=== PATIENT | male | born 1975 | race Caucasian/White ===

== ENCOUNTER 2019-09-03 03:04 | Inpatient (IN) | payer MEDICAID ==
[~2019-09-03] VITALS: Ht 182.9 cm; Wt 84.0 kg
[2019-09-03] MEDS ORDERED: MAGNESIUM SULFATE PMX 2GM/50ML 50 ML ONE (03:06)
[2019-09-03] MEDS ORDERED: PROAIR (03:07)
[2019-09-03] MEDS ORDERED: SYMBICORT (03:07)
[2019-09-03] MEDS ORDERED: ALBUTEROL 0.5%, 20ML ONE (03:09)
--- NOTE | 2019-09-03 03:10 | NUR ---
abx ordered. states no blood cultures needed prior to abx. primary rn informed.
[2019-09-03] MEDS: ALBUTEROL 0.5%, 20ML NPPB SCH ×2 (03:29→10:52)
--- NOTE | 2019-09-03 03:29 | NUR ---
Pt bib [facility] with c/o SOB s/t asthma. Pt is OOT and did not bring his inhaler. Received 3 albuterol and 1 duoneb with little relief. Upon arrival pt in tripod position. RT at bedside and pt placed on bipap. Antibiotics infusing--no blood cultures prior per ERP. Mag infusion started. ERP requesting mag infuse a 50ml/hr instead of 25ml/hr. Confirmed order and infusion increased. PT on all monitors. States sig relief of SOB after bipap placed. Pt no longer in tripod and able to answer with 3-4 word sentences at this time.
[2019-09-03] MEDS ORDERED: AZITHROMYCIN 500 MG in SODIUM CHLORIDE 0.9% 250 ML IVPB ONE (03:30)
[2019-09-03] MEDS ORDERED: MAGNESIUM SULFATE PMX 2GM/50ML 50 ML IV ONE (03:30)
[2019-09-03 03:33] LABS: BASOPHILS # (AUTO) 0.07 x10^3/uL (0-0.1); BASOPHILS % (AUTO) 1 % (0-1); EOSINOPHILS # (AUTO) 0.16 x10^3/uL (0-0.4); EOSINOPHILS % (AUTO) 2 % (1-7); LYMPHOCYTES # (AUTO) 3.01 x10^3/uL (1-3.4); LYMPHOCYTES % (AUTO) 36 % (22-44); MD NO; MEAN CORPUSCULAR HEMOGLOBIN 30.8 pg (27.5-34.5); MEAN CORPUSCULAR HGB CONC 33.7 g/dL (33.2-36.2); MEAN CORPUSCULAR VOLUME 91.4 fL (81-97); MEAN PLATELET VOLUME 6.6 fL (7.4-10.4); MONOCYTES # (AUTO) 0.66 x10^3/uL (0.2-0.8); MONOCYTES % (AUTO) 8 % (2-9); NEUTROPHILS # (AUTO) 4.51 x10^3/uL (1.8-6.8); NEUTROPHILS % (AUTO) 54 % (42-75); PLATELET COUNT 298 x10^3/uL (130-400); RED BLOOD COUNT 5.21 x10^6/uL (4.38-5.82); RED CELL DISTRIBUTION WIDTH 13.6 % (9.4-14.8)
[2019-09-03] MEDS ORDERED: LORazepam 2 MG/ML, 1ML ONE (03:39)
[2019-09-03 03:44] LABS: ALBUMIN 4.2 g/dL (3.4-5.0); ANION GAP 7 mmol/L (5-15); CALCIUM 8.8 mg/dL (8.5-10.1); CHLORIDE 108 mmol/L (98-107); CREATININE 1.13 mg/dL (0.7-1.3)
--- NOTE | 2019-09-03 03:45 | NUR ---
Pt requesting something to calm him. ERP aware and in to recheck pt. Order for 0.5 mg Ativan IV received. Pt medicated per OCT. VS improving. Call light in reach.
[2019-09-03] MEDS ORDERED: LORazepam 2 MG/ML, 1ML IVPush ONE (04:00)
--- NOTE | 2019-09-03 04:00 | NUR ---
Pt states he is feeling better. Will have ERP recheck and assess further need for bipap. Pt denies needs at this time. VSS.
--- NOTE | 2019-09-03 04:50 | NUR ---
ERP in to recheck pt. Pt will remain on BiPap. Ok to remove Bipap for ice chips PO. Pt tolerated well. VS improved. Awaiting admission. Call light in reach.
--- NOTE | 2019-09-03 05:07 | NUR ---
Dr Tai at bedside to [facility] for admission.
[2019-09-03] MEDS ORDERED: ACETAMINOPHEN 325 MG TABLET PO PRN (05:30)
[2019-09-03] MEDS ORDERED: NICOTINE 21 MG/24 HR PATCH.TD24 TD SCH (05:30)
[2019-09-03] MEDS ORDERED: ONDANSETRON 2MG/ML, 2ML IVPush PRN (05:30)
[2019-09-03] MEDS ORDERED: hydrALAzine 20 MG/ML, 1ML IVPush PRN (05:30)
[2019-09-03] MEDS ORDERED: methylPREDNISolone SOD SUCC 125 MG/2 ML IVPush SCH ×2 (05:30→09:00)
[2019-09-03] MEDS ORDERED: ENOXAPARIN 40 MG/0.4 ML SQ SCH ×2 (05:30)
--- NOTE | 2019-09-03 05:50 | NUR ---
Clarified orders with Dr Tai. Lovenox 40mg to be given. Second order for lovenox to be held. Labs BMP, Phos, and Mag to be drawn this AM and any abnormal values to be called to MD. Lab orders placed.
--- NOTE | 2019-09-03 06:04 | NUR ---
pT SLEEPING WITH NO S/S OF ACUTE DISTRESS. TOLERATING BIPAP WELL. VSS.
--- NOTE | 2019-09-03 06:41 | NUR ---
Pt sleeping with no s/s of acute distress. Tolerating BiPap well. VSS. Admit orders reviewed. Awaiting transfer to floor.
[2019-09-03 06:42] LABS: ANION GAP 6 mmol/L (5-15); CALCIUM 8.4 mg/dL (8.5-10.1); CHLORIDE 111 mmol/L (98-107); CREATININE 0.95 mg/dL (0.7-1.3)
--- NOTE | 2019-09-03 07:00 | NUR ---
Report from Rola RN. Pt resting in bed, states he is feeling much better. Pt speaking in full sentences, resp even and unlabored, no wheezing. Nancy RT at bedside to trial pt on NC instead of BiPap. Pt requesting to go home, verbalized understanding that this RN will page hospitalist to follow up on that request.
--- NOTE | 2019-09-03 07:02 | NUR ---
PT REQUESTING TO BE D/C. RT AT BEDSIDE TO TRIAL OFF BIPAP. NO ACUTE DISTRESS NOTED AT THIS TIME. AWAITING LAB RESULTS AND WILL CALL MD WITH ANY ABNORMALS. REPORT TO TEETEE BOOTH.
--- NOTE | 2019-09-03 07:09 | NUR ---
Meal tray ordered for pt.
--- NOTE | 2019-09-03 07:43 | NUR ---
Called Dr. Peter, to discuss pt condition and requests. Dr. Peter verbalizes that she will come down to evaluate the pt zuly. This RN relayed this info to pt, he verbalizes understanding. Pt maintaining O2 sats >95% on 1L via NC, attempting RA trial. Pt denies other needs.
--- NOTE | 2019-09-03 07:59 | NUR ---
Pt tolerating RA with O2 sat >92%. Dr. Peter at bedside to evaluate pt.
--- NOTE | 2019-09-03 08:26 | NUR ---
Pt positioned for comfort in bed, provided orange juice and water per request as well as breakfast tray. Pt denies other needs, POC discussed with pt. Pt agreeable to being admitted and staying in the hospital at this time.
[2019-09-03] MEDS ORDERED: NICOTINE 14MG/24 HR PATCH.TD24 ONE (08:41)
[2019-09-03] MEDS ORDERED: methylPREDNISolone SOD SUCC 125 MG/2 ML ONE (08:41)
[2019-09-03] MEDS ORDERED: ENOXAPARIN 40 MG/0.4 ML ONE (08:41)
--- NOTE | 2019-09-03 08:49 | NUR ---
Pt medicated per MAR, denies other needs.
--- NOTE | 2019-09-03 10:12 | NUR ---
Pt ambulatory to bathroom and back to bed without difficulty, resps even and unlabored. Pt ambulatory to rm 22, report given to Lidia BOOTH. Pt verbalizes he is feeling much better, denies other needs.
[2019-09-03] MEDS ORDERED: ALBUTEROL/IPRATROPIUM 2.5MG/0.5MG, 3 ML ONE (10:47)
--- NOTE | 2019-09-03 11:57 | NUR ---
REPORT TO DONNA BOOTH. PT TO BE TRANSFERRED TO FLOOR
--- NOTE | 2019-09-03 12:27 | NUR ---
long discussion with pt regarding [facility]a, wants a rx so he can go. discussed with pt that he was on bipap 7 hours ago with high dose steriods and an ICU admit order, as he has improved he has been down graded to med tele but still needs nebulizers and steriods. pt wants [facility] to write for an rx and discharge him. discussed pt able to leave [facility], but get a rx when when he has not been safe for discharge will have to be a reaevaluation by [facility]. agrees to go to floor at this time.
[2019-09-03 13:26] VITALS: BP 135/76
[2019-09-03] MEDS ORDERED: POTASSIUM ACID PHOSPHATE 500 MG TABLET.SOL PO SCH (13:30)
[2019-09-03] MEDS ORDERED: PRED10TA PO (13:42)
[2019-09-03] MEDS ORDERED: ALBU8.5H8 INH (13:42)
== END 2019-09-03 14:30 | disposition home or self-care (01) | DRG 189 ==
LOC: ED 04:03 → EDIP 04:31 → 4NE 13:22
PROVIDERS: ADMIT Internal Medicine; ATTEND Internal Medicine
PROC: 5A09357 Assistance with Respiratory Ventilation, Less than 24 Consecutive Hours, Continuous Positive Airway Pressure (ICD-10-PCS; principal; 2019-09-03)
DX: J96.01 Acute respiratory failure with hypoxia (principal); J45.22 Mild intermittent asthma with status asthmaticus; F17.200 Nicotine dependence, unspecified, uncomplicated; E83.39 Other disorders of phosphorus metabolism; Z71.6 Tobacco abuse counseling; Z88.6 Allergy status to analgesic agent
CPT/HCPCS: 36600; 96365; 96368; 96372; 96375; 99291; J7611; 71045; 80048; 82040; 82803; 83735; 84100; 85025; 93005; 94640; 94644; 94660; G0378; J0456; J1650; J2060; J2930; J3475; J7050